=== PATIENT | male | born 2000 | race Caucasian/White ===

== ENCOUNTER 2021-07-28 01:09 | Emergency (ER) | payer BC ==
[~2021-07-28] VITALS: Ht 185.4 cm; Wt 188.6 kg
[2021-07-28 01:21] VITALS: TEMP 98.3
[2021-07-28] MEDS ORDERED: PRISTIQ100 MG PO (01:27)
[2021-07-28] MEDS ORDERED: BUSPAR 30MG30 MG/TAB PO (01:27)
[2021-07-28] MEDS ORDERED: TYLENOL PM EXTR1 TA1 PO (01:27)
[2021-07-28 02:12] LABS: BASO % 0.3 % (0.0-2.0); EOS # 0.1 K/mm3 (0.0-0.7); GRAN # 5.4 K/mm3 (1.4-6.5); GRAN % 46.2 % (42.2-75.2); HEMATOCRIT 45.1 % (36.0-47.0); HEMOGLOBIN 15.6 g/dl (12.5-16.1); LYMPH % 42.6 % (20.0-51.0); MEAN CELL VOLUME 86 fl (80.0-95.0); MEAN CORPUSCULAR HEMOGLOBIN 30 pg (26-32); MEAN CORPUSCULAR HGB CONC 35 g/dl (33.0-37.0); MEAN PLATELET VOLUME 9.2 fl (7.4-10.4); MONO # 1.1 K/mm3 (0.1-0.6); MONO % 9.6 % (1.7-9.3); PLATELET COUNT 246 K/mm3 (130-400); RED BLOOD COUNT 5.26 M/mm3 (4.20-5.60); REDCELL DISTRIBUTION WIDTH-CV 12.4 % (11.5-14.5)
[2021-07-28 02:32] LABS: ALBUMIN 4.1 gm/dL (3.5-5.0); BILIRUBIN,TOTAL 0.4 mg/dL (0.2-1.2); C-REACTIVE PROTEIN 1.9 mg/dL (0.00-0.50); CALCIUM 9.4 mg/dL (8.4-10.2); CREATININE, serum 0.96 mg/dL (0.72-1.25); POTASSIUM 3.9 mmol/L (3.5-4.5)
[2021-07-28] MEDS ORDERED: CLEOCIN HCL300 MG PO (02:49)
[2021-07-28 03:22] VITALS: BP 162/80; PULSE 82
== END 2021-07-28 03:25 | disposition home or self-care (01) ==
LOC: COL.ER 01:09
PROVIDERS: Emergency Medicine
DX: T17.900A Unspecified foreign body in respiratory tract, part unspecified causing asphyxiation, initial encounter (principal); F17.290 Nicotine dependence, other tobacco product, uncomplicated; Z28.311 Partially vaccinated for COVID-19
CPT/HCPCS: J7030

== ENCOUNTER → 2023-04-08 | Outpatient (CLI) | payer BC ==
[~2023-04-08] MED LIST: BUSPAR 30MG30 MG/TAB PO; CLEOCIN HCL300 MG PO; GLUCOPHAGE XR500 M1 PO; PRISTIQ100 MG PO; TYLENOL PM EXTR1 TA1 PO
== END ==
LOC: COL.RAD 15:52
DX: M54.50 Low back pain, unspecified (principal)